=== PATIENT | male | born 1980 | race Caucasian/White ===

== ENCOUNTER 2017-03-28 16:55 | Emergency (ER) | payer BC, OTHER ==
[2017-03-28 17:01] VITALS: RESP 16; O2SAT 95
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
[2017-03-28] MEDS ORDERED: LET GEL TOPICAL 1 EA SYR TP ONE (17:59)
[2017-03-28 18:56] VITALS: BP 170/85; PULSE 78; TEMP 98.4
== END 2017-03-28 18:54 | disposition home or self-care (01) ==
DX: S40.812A Abrasion of left upper arm, initial encounter (principal); S80.812A Abrasion, left lower leg, initial encounter; J45.909 Unspecified asthma, uncomplicated; V18.2XXA Unspecified pedal cyclist injured in noncollision transport accident in nontraffic accident, initial encounter

== ENCOUNTER → 2017-07-26 | Day surgery (SDC) | payer OTHER ==
[~2017-07-26] MED LIST: ADENOSINE 6 MG/2 ML VIAL ONE; ALBUMIN 5% 250 ML BOTTLE IV ONE; AMIODARONE HCL 150 MG/3 ML VIAL ONE; ASPIRIN 81 MG CHEWABLE TAB ONE; ASPIRIN EC 325 MG TAB PO ONE; ASPIRIN RECTAL 300 MG SUPP PR ONE; CALCIUM CHLORIDE 1 GM/10 ML INJ ONE; CHLORHEXIDINE GLUC HIBICLENS 118 ML BTL TP SCH; CITRATE DEXTROSE SOLN 500 ML BAG MISC ONE; CITRATE DEXTROSE SOLN 500 ML BAG ONE; DOPamine/DEXTROSE/250 ML BAG IV ONE; EPINEPHrine 8 MG in NS 250 ML IV SCH; FUROSEMIDE 20 MG/2 ML VIAL IVP ONE; FUROSEMIDE 20 MG/2 ML VIAL ONE; HEPARIN 10,000 UNIT/10 ML MDV (1,000 UNIT/ML) ONE; INSULIN REGULAR HUMAN 100 UNIT in NS 100 ML IV ONE; IOPAMIDOL (ISOVUE 370) 100 ML BTL IV ONE; KETAMINE 200 MG/20 ML VIAL IVP ONE; LIDOCAINE 1% 5 ML SDV ID PRN; LIDOCAINE 2% 100 MG/5 ML SYR ONE; MAGNESIUM SULFATE 1 GM/2 ML VIAL ONE; MANNITOL 25% 12.5 GM/50 ML VIAL IVP ONE; MIDAZOLAM 2 MG/2 ML VIAL IVP ONE; MILRINONE/DEXTROSE/100 ML BAG IV ONE; MINERAL OIL 10 ML VIAL ONE; MUPIROCIN 2% 1 APP/GM OINT *BID NS SCH; NA BICARBONATE 50 MEQ/50 ML VIAL ONE; NITROGLYCERIN 50 MG/10 ML SDV IV ONE; NOREPINEPHRINE BITARTRATE 16 MG in NS 250 ML IV ONE; NS 1,000 ML IV ONE; PHENYLEPHRINE HCL 50 MG in NS 250 ML IV ONE; PHENYLEPHRINE HCL 50 MG in NS 250 ML IV SCH; PROTAMINE SULFATE 50 MG/5 ML VIAL IVP ONE; ROCURONIUM 100 MG/10 ML VIAL IVP ONE; ROCURONIUM 100 MG/10 ML VIAL ONE; SODIUM BICARBONATE 20 MEQ, LIDOCAINE 1% 10 ML in NORMOSOL-R 1,000 ML MISC ONE; TRANEXAMIC ACID 1,000 MG in NS (SYRINGE) 50 ML IV ONE; VASOPRESSIN 20 UNIT/ML VIAL ONE; VERAPAMIL 5 MG, NITROGLYCERIN 2.5 MG, HEPARIN 500 UNIT, SODIUM BICARBONATE 0.2 MEQ in L... MISC ONE; ceFAZolin 1 GM VIAL ONE; ceFAZolin 2 GM/SWFI 2 GM/20 ML SYR IVP ONE; ceFAZolin 3 GM in D5W 100 ML IV ONE; fentaNYL 100 MCG/2 ML INJ IVP ONE; fentaNYL 250 MCG/5 ML INJ ONE; methylPREDNISolone SOD SUCC 1 GM/8 ML VIAL ONE; niCARdipine/NACL/200 ML BAG IV ONE
[2017-07-26 22:30] VITALS: TEMP 98.1
--- NOTE | 2017-07-26 22:31 | CPEKG ---
Heart Rate: 68 RR Interval: 882 P-R Interval: 160 QRSD Interval: 90 QT Interval: 412 QTC Interval: 439 P [place]: 68 QRS [place]: 93 T Wave [place]: 247 EKG Severity - ABNORMAL ECG - EKG Impression: SINUS RHYTHM EKG Impression: BORDERLINE RIGHT AXIS DEVIATION EKG Impression: REPOL ABNRM SUGGESTS ISCHEMIA, DIFFUSE LEADS Electronically Signed By: Dajuan Lott 27-Jul-2017 09:29:07
--- NOTE | 2017-07-26 22:40 | CPEKG ---
Heart Rate: 76 RR Interval: 789 P-R Interval: 176 QRSD Interval: 90 QT Interval: 416 QTC Interval: 468 P [place]: 56 QRS [place]: 96 EKG Severity - ABNORMAL ECG - EKG Impression: SINUS RHYTHM EKG Impression: BORDERLINE RIGHT AXIS DEVIATION EKG Impression: REPOL ABNRM SUGGESTS ISCHEMIA, DIFFUSE LEADS Electronically Signed By: Dajuan Lott 27-Jul-2017 09:29:02
--- NOTE | 2017-07-26 22:45 | EDPHY ---
H & P Stated Complaint: cp Time Seen by Provider: 07/26/17 22:30 HPI/ROS: HPI The patient presents with chest pain which began about 30 min ago. He was downstairs in the basement, seated, when he walked up stairs and told his that he felt as if he was having a heart attack. He has midsternal chest pain which is severe and getting progressively worse. This is associated with some right-sided vision changes. His says that he has a history of migraines that often are ocular that can present with aphasia and she is worried that he may be having 1 now. He does not have hypertension, not a smoker, no prior history of chest pain. He does not have any family history of ACS. REVIEW OF SYSTEMS Constitutional: No fever, no chills. Eyes: No discharge. ENT: No sore throat. Cardiovascular: Positive for chest pain, no palpitations. Respiratory: No cough, no shortness of breath. Gastrointestinal: No abdominal pain, no vomiting. Genitourinary: No hematuria. Musculoskeletal: No back pain. Skin: No rashes. Neurological: No headache. PMHx: Some sort of valvular heart disease, not requiring any operation, history of migraine headaches Soc Hx: Lives at home with his , no smoking PHYSICAL General Appearance: Alert, obviously uncomfortable and crying out in pain Eyes: Pupils equal and round no pallor or injection ENT, Mouth: Mucous membranes moist Respiratory: He is tachypneic, lungs are clear Cardiovascular: Regular rate and rhythm Gastrointestinal: Abdomen is soft and non-tender, no masses, bowel sounds normal Neurological: A&O, moves all extremities Skin: Warm and dry, no rashes Musculoskeletal: Neck is supple non tender Extremities: symmetrical, full range of motion Psychiatric: Patient is oriented X 3, there is no agitation Source: Patient Exam Limitations: No limitations - Personal History Current Tetanus Diphtheria and Acellular Pertussis (TDAP): Unsure - Medical/Surgical History Hx Asthma: Yes Other PMH: migraines, mass syndrome - Social History Smoking Status: Never smoked Constitutional: Initial Vital Signs Temperature (C) 36.7 C 07/26/17 22:28 Heart Rate 72 07/26/17 22:28 Respiratory Rate 22 H 07/26/17 22:28 Blood Pressure 114/53 L 07/26/17 22:28 O2 Sat (%) 98 07/26/17 22:28 O2 Delivery Mode Ventilator O2 (L/minute) 15 Allergies/Adverse Reactions: theophylline Allergy (Mild, Verified 03/28/17 16:58) nausea Home Medications: Medication Instructions Recorded NK [No Known Home Meds] 03/28/17 Medical Decision Making - Diagnostics EKG Interpretation: EKG: Complete interpretation has been separately recorded in the [facility] archive. Summary impression: ST segment elevation in AVR with 3 per super cold depressions Imaging Results: Imaging Impressions Chest X-Ray 07/26/17 22:45 Impression: Interstitial prominence and patchy airspace consolidation that with the cardiomegaly could represent congestive heart failure. Component of pneumonia or pneumonitis cannot be excluded. Chest/Thorax CTA 07/26/17 23:08 Impression: 1. Aneurysmal dilatation the ascending thoracic aorta measuring 7 cm just above the aortic annulus. Evidence of dissection in the thoracic aorta beginning at the aortic annulus extending to the aortic arch with involvement of the great vessels and then extending caudally in the thoracic aorta to the level of the celiac artery with incomplete visualization of its caudal extent as above. 2. Pulmonary vascular congestion with interstitial prominence and patchy airspace consolidation bilateral suggesting pulmonary edema. Results called and discussed with Dr. Nancy Nguyen at 07/26/2017 2345 hours. Imaging: Discussed imaging studies w/ calliope player Radiologist, I viewed and interpreted images myself Procedures: INTUBATION Procedure: Rapid sequence intubation. Indication for the procedure was airway protection and respiratory failure. The patient was preoxygenated with 100% oxygen by nasal cannula and face mask. The patient was given the following IV medications: Ketamine and rocuronium. The patient was orally endotracheally intubated using the glide scope with a 8.0 ETT. Tracheal intubation was confirmed with misting on the tube; breath sounds were auscultated equally bilaterally; appropriate color change with [place] [employer] CO2 detector. The procedure was performed by myself. Differential Diagnosis: 36-year-old male, brought in by his , past medical history of migraine headaches and some sort of valvular heart disease presents with chest pain which has been present for the last 30 min. On exam, he has normal vital signs. He seems to be very uncomfortable and is unable to articulate his pain. 10:44 p.m.- I spoke with Dr. Ching Of Cardiology he will come to evaluate the patient. Patient is still having ongoing pain, thus we will medicate with morphine. 11:13 p.m.- The patient has had stable vital signs though has ongoing chest pain and is somewhat agitated. He is receiving a 2nd dose of morphine. Chest x-ray returned showing concern for cardiomegaly which would be unusual, and raises suspicion for aortic dissection. That brim buster will go with the patient to CT scan to evaluate for aortic dissection. 11:30 p.m.- CT scan reveals large aortic dissection. Patient has become more tachycardic, slightly hypotensive and is quite agitated. He had to receive fentanyl and Versed to undergo CT scan. He was moved immediately back to his room in the emergency department and then was emergently intubated. There was frothy sputum during intubation. Blood pressures have been stable, patient's oxygen saturations have improved. Dr. Hinojosa CT surgery is in the department seeing the patient. He will go directly to the operating room. 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 Critical Care Time: CRITICAL CARE Critical care time spent by me, Dr. Nguyen, exclusively with this patient was 60 minutes, exclusive of PA time and exclusive of procedures. The organ system at risk was cardiac, neuro and I gave IV fluids, intubated the patient, patient transported directly to the operating room to prevent worsening of the patients condition. - Data Points Laboratory Results: Laboratory Results 07/26/17 22:37 07/26/17 22:37 07/26/17 07/26/17 07/26/17 23:37 22:37 22:37 WBC 13.30 10^3/uL H 10^3/uL (3.80-9.50) RBC 5.51 10^6/uL 10^6/uL (4.40-6.38) Hgb 15.7 g/dL g/dL (13.7-17.5) Hct 46.2 % % (40.0-51.0) MCV 83.8 fL fL (81.5-99.8) MCH 28.5 pg pg (27.9-34.1) MCHC 34.0 g/dL g/dL (32.4-36.7) RDW 13.8 % % (11.5-15.2) Plt Count 240 10^3/uL 10^3/uL (150-400) MPV 9.1 fL fL (8.7-11.7) Neut % (Auto) 45.8 % % (39.3-74.2) Lymph % (Auto) 42.6 % % (15.0-45.0) Gem % (Auto) 8.7 % % (4.5-13.0) Eos % (Auto) 2.1 % % (0.6-7.6) Baso % (Auto) 0.5 % % (0.3-1.7) Nucleat RBC Rel Count 0.0 % % (0.0-0.2) Absolute Neuts (auto) 6.09 10^3/uL 10^3/uL (1.70-6.50) Absolute Lymphs (auto) 5.66 10^3/uL H 10^3/uL (1.00-3.00) Absolute Monos (auto) 1.16 10^3/uL H 10^3/uL (0.30-0.80) Absolute Eos (auto) 0.28 10^3/uL 10^3/uL (0.03-0.40) Absolute Basos (auto) 0.07 10^3/uL 10^3/uL (0.02-0.10) Absolute Nucleated RBC 0.00 10^3/uL 10^3/uL (0-0.01) Immature Gran % 0.3 % % (0.0-1.1) Immature Gran # 0.04 10^3/uL 10^3/uL (0.00-0.10) Sodium 140 mEq/L mEq/L (135-145) Potassium 4.5 mEq/L mEq/L (3.5-5.2) Chloride 105 mEq/L mEq/L (97-110) Carbon Dioxide 21 mEq/l L mEq/l (22-31) Anion Gap 14 mEq/L mEq/L (8-16) BUN 17 mg/dL mg/dL (7-23) Creatinine 1.2 mg/dL mg/dL (0.7-1.3) Estimated GFR > 60 Glucose 113 mg/dL H mg/dL (70-100) Calcium 9.6 mg/dL mg/dL (8.5-10.4) Troponin I < 0.012 ng/mL ng/mL (0.000-0.034) Patient ABO/Rh O NEGATIVE Antibody Screen NEGATIVE Crossmatch IS Only See Detail Bld Prod Verbal Order YES Medications Given: Discontinued Medications Adenosine (Adenosine) Confirm Administered Dose 12 mg .ROUTE .STK-MED ONE Stop: 07/27/17 00:28 Last Admin: 07/27/17 02:08 Dose: Not Given Albumin Human (Alburx 5) Confirm Administered Dose 1,000 ml IV .STK-MED ONE Stop: 07/27/17 00:29 Last Admin: 07/27/17 02:08 Dose: Not Given Amiodarone HCl (Amiodarone Hcl) Confirm Administered Dose 300 mg .ROUTE .STK- MED ONE Stop: 07/27/17 00:28 Last Admin: 07/27/17 02:08 Dose: Not Given Amiodarone HCl (Amiodarone Hcl) Confirm Administered Dose 150 mg .ROUTE .STK- MED ONE Stop: 07/27/17 00:30 Last Admin: 07/27/17 02:08 Dose: Not Given Aspirin (Aspirin Rectal) 300 mg ND EDNOW ONE Stop: 07/26/17 22:48 Last Admin: 07/26/17 22:49 Dose: 300 mg Aspirin Buffered (Aspirin Ec) 325 mg PO EDNOW ONE Stop: 07/26/17 22:44 Last Admin: 07/26/17 22:51 Dose: Not Given Calcium Chloride (Calcium Chloride) Confirm Administered Dose 3 gm .ROUTE .STK- MED ONE Stop: 07/27/17 00:26 Last Admin: 07/27/17 02:09 Dose: Not Given Calcium Chloride (Calcium Chloride) Confirm Administered Dose 3 gm .ROUTE .STK- MED ONE Stop: 07/27/17 00:29 Last Admin: 07/27/17 02:09 Dose: Not Given Cefazolin Sodium (Ancef) Confirm Administered Dose 2 gm .ROUTE .STK-MED ONE Stop: 07/27/17 00:28 Last Admin: 07/27/17 02:10 Dose: Not Given Cefazolin Sodium (Ancef) Confirm Administered Dose 1 gm .ROUTE .STK-MED ONE Stop: 07/27/17 02:09 Last Admin: 07/27/17 02:32 Dose: Not Given Cefazolin Sodium (Ancef) Confirm Administered Dose 1 gm .ROUTE .STK-MED ONE Stop: 07/27/17 02:09 Last Admin: 07/27/17 02:32 Dose: Not Given Cefazolin Sodium (Ancef) Confirm Administered Dose 1 gm .ROUTE .STK-MED ONE Stop: 07/27/17 02:09 Last Admin: 07/27/17 02:32 Dose: Not Given Dopamine HCl/Dextrose (Dopamine 1600 Mcg/Ml (Premix)) Confirm Administered Dose 400 mg IV .STK-MED ONE Stop: 07/27/17 00:28 Last Admin: 07/27/17 02:18 Dose: Not Given Fentanyl (Sublimaze) 50 mcg IVP EDNOW ONE Stop: 07/26/17 23:21 Last Admin: 07/26/17 23:58 Dose: 50 mcg Furosemide (Lasix Injection) 20 mg IVP EDNOW ONE Stop: 07/26/17 23:11 Last Admin: 07/26/17 23:09 Dose: 20 mg Heparin Sodium (Porcine) (Heparin Injection) Confirm Administered Dose 6,000 unit .ROUTE .STK-MED ONE Stop: 07/27/17 00:23 Last Admin: 07/27/17 02:18 Dose: Not Given Heparin Sodium (Porcine) (Heparin Injection) Confirm Administered Dose 10,000 unit .ROUTE .STK-MED ONE Stop: 07/27/17 00:27 Last Admin: 07/27/17 02:18 Dose: Not Given Heparin Sodium (Porcine) (Heparin Injection) Confirm Administered Dose 4,000 unit .ROUTE .STK-MED ONE Stop: 07/27/17 00:29 Last Admin: 07/27/17 02:18 Dose: Not Given Sodium Chloride (Ns) 1,000 mls @ 0 mls/hr IV ONCE ONE PRN Reason: Wide Open Stop: 07/26/17 22:41 Last Admin: 07/26/17 22:41 Dose: 1,000 mls Cefazolin Sodium (Cefazolin Syringe) 2 gm in 20 mls @ 200 mls/hr IVP ONCALL ONE Stop: 07/26/17 23:35 Last Admin: 07/27/17 02:12 Dose: 20 mls Tranexamic Acid 1,000 mg/ (Sodium Chloride) 50 mls @ 0 mls/hr IV ONCALL ONE PRN Reason: As Directed Stop: 07/26/17 23:31 Last Admin: 07/27/17 01:40 Dose: 50 mls Tranexamic Acid 1,000 mg/ (Sodium Chloride) 50 mls @ 0 mls/hr IV ONCALL ONE PRN Reason: As Directed Stop: 07/26/17 23:31 Last Admin: 07/27/17 01:40 Dose: 50 mls Insulin Human Regular 100 unit (/ Sodium Chloride) 101 mls @ 0 mls/hr IV ONCALL ONE PRN Reason: As Directed Stop: 07/26/17 23:31 Last Admin: 07/27/17 02:18 Dose: Not Given Cefazolin Sodium 3 gm/ (Dextrose) 100 mls @ 200 mls/hr IV ONCALL ONE Stop: 07/26/17 23:59 Last Admin: 07/26/17 23:58 Dose: 100 mls Verapamil HCl 5 mg/Nitroglycerin 2.5 mg/ Heparin Sodium (Porcine) 500 unit/ Sodium Bicarbonate 0.2 meq/Lactated Ringer's 303.2 mls @ 0 mls/hr MISC ONCALL ONE PRN Reason: As Directed Stop: 07/27/17 04:31 Last Admin: 07/27/17 04:34 Dose: 303.2 mls Ketamine HCl (Ketamine) 120 mg IVP EDNOW ONE Stop: 07/26/17 23:26 Last Admin: 07/27/17 00:00 Dose: 120 mg Lidocaine HCl (Lidocaine Hcl 2%) Confirm Administered Dose 200 mg .ROUTE .STK- MED ONE Stop: 07/27/17 00:29 Last Admin: 07/27/17 02:19 Dose: Not Given Magnesium Sulfate (Magnesium Sulfate) Confirm Administered Dose 4 gm .ROUTE .STK -MED ONE Stop: 07/27/17 00:30 Last Admin: 07/27/17 02:19 Dose: Not Given Mannitol (Mannitol 25%) 25 gm IVP ONCALL ONE Stop: 07/26/17 23:31 Last Admin: 07/27/17 02:19 Dose: Not Given Methylprednisolone Sodium Succinate (Solu-Medrol) Confirm Administered Dose 1 gm .ROUTE .STK-MED ONE Stop: 07/27/17 00:30 Last Admin: 07/27/17 02:19 Dose: Not Given Midazolam HCl (Versed) 1 mg IVP EDNOW ONE Stop: 07/26/17 23:21 Last Admin: 07/26/17 23:58 Dose: Not Given Midazolam HCl (Versed) 2 mg IVP ONCE ONE Stop: 07/26/17 23:57 Last Admin: 07/26/17 23:58 Dose: 2 mg Milrinone Lactate/Dextrose (Primacor 200 Mcg/Ml (Premix)) Confirm Administered Dose 20 mg IV .STK-MED ONE Stop: 07/27/17 00:26 Last Admin: 07/27/17 02:19 Dose: Not Given Mineral Oil (Muri-Lube Mineral Oil) Confirm Administered Dose 10 ml .ROUTE .STK- MED ONE Stop: 07/27/17 03:27 Last Admin: 07/27/17 04:32 Dose: 10 ml Morphine Sulfate (Morphine) 4 mg IVP EDNOW ONE Stop: 07/26/17 22:40 Last Admin: 07/26/17 22:41 Dose: 4 mg Morphine Sulfate (Morphine) 4 mg IVP EDNOW ONE Stop: 07/26/17 23:06 Last Admin: 07/26/17 23:05 Dose: 4 mg Nicardipine/Sodium Chloride (Cardene 0.1 Mg/Ml (Premix)) Confirm Administered Dose 20 mg IV .STK-MED ONE Stop: 07/27/17 00:28 Last Admin: 07/27/17 02:19 Dose: Not Given Protamine Sulfate (Protamine Sulfate) Confirm Administered Dose 400 mg IVP .STK- MED ONE Stop: 07/27/17 00:26 Last Admin: 07/27/17 02:20 Dose: Not Given Rocuronium [place] (Zemuron) 100 mg IVP EDNOW ONE Stop: 07/26/17 23:26 Last Admin: 07/27/17 00:01 Dose: 100 mg Sodium Bicarbonate (Sodium Bicarbonate) Confirm Administered Dose 350 meq .ROUTE .STK-MED ONE Stop: 07/27/17 00:27 Last Admin: 07/27/17 02:20 Dose: Not Given Sodium Bicarbonate (Sodium Bicarbonate) Confirm Administered Dose 100 meq .ROUTE .STK-MED ONE Stop: 07/27/17 02:16 Last Admin: 07/27/17 02:31 Dose: Not Given Sodium Citrate (Acd-A) 500 ml MISC ONCALL ONE Stop: 07/26/17 23:31 Last Admin: 07/27/17 02:11 Dose: Not Given Sodium Citrate (Acd-A) Confirm Administered Dose 500 ml .ROUTE .STK-MED ONE Stop: 07/27/17 00:22 Last Admin: 07/27/17 02:14 Dose: Not Given Sodium Citrate (Acd-A) Confirm Administered Dose 500 ml .ROUTE .STK-MED ONE Stop: 07/27/17 00:29 Last Admin: 07/27/17 02:17 Dose: Not Given Departure - Departure Disposition: To OP Cath/Surgery Clinical Impression: Acute coronary syndrome Congestive heart failure Qualifiers: Heart failure type: unspecified Heart failure chronicity: acute Qualified Code( s): I50.9 - Heart failure, unspecified Aortic dissection Qualifiers: Aortic location: unspecified Qualified Code(s): I71.00 - Dissection of unspecified site of aorta Condition: Critical
[2017-07-26 22:52] LABS: PLATELET COUNT 240 10^3/uL (150-400)
[2017-07-27 00:03] VITALS: BP 116/59; O2SAT 88
--- NOTE | 2017-07-27 00:27 | PDCARCONS ---
Cardiology Consult Reason for Consult: Cardiac alert Chief Complaint: Help me Requesting Physician: Patrick History of Present Illness: 36-year-old male no prior cardiovascular history. I was called in by Dr. Nguyen for cardiac alert. Patient presented with acute onset at 10:00 p.m. of terrible chest pain and loss of vision in 1 eye. It was associated with shortness of breath. He went to his saying that if this was a heart attack he thought he was having when he was brought to the emergency department initial EKG showed ST elevation in 1 and aVL with reciprocal ST depression in all other leads and I was called. On my arrival the patient was in acute extremis. He was sitting bolt upright diaphoretic sweaty in acute pulmonary edema with pink frothy fluid. His only complaint was that he needed help. On my arrival I was able to contact his father who question whether not he had Marfan's disease as a child. He did have a history of a repaired pectus excavatum. With that information he was taken emergently to the Cardiac CT scanner by myself in the ER nursing staff. He was sedated with 2 mg of Versed and 75 mcg of fentanyl. Were able to obtain a CT scan confirming ascending aortic dissection. On my arrival to the ER after for clinical examination showed differential pulses I did contact Dr. Berrios to activate the surgery team. After returning from CT scanner patient's respirations were depressed and oxygen saturations at fallen. Dr. Nguyen was asked to intubate the patient which she performed without complication. He was then taken emergently to the operating room for surgical repair. History Information - Allergies/Home Medication List Allergies/Adverse Reactions: theophylline Allergy (Mild, Verified 03/28/17 16:58) nausea Home Medications: NK [No Known Home Meds] 03/28/17 [Last Taken Unknown] I have personally reviewed and updated: family history, medical history, social history, surgical history Past Medical History: No history of alcohol. No history of tobacco. Surgical history significant fracture of the face. And pectus excavatum repair as a child. Patient had a questionable diagnosis of mast syndrome made during genetic counseling prior to IVF with his . No genetic confirmation of Marfan's disease was performed. There is a family history of tall stature. No history of aortopathy. - Past Medical History migraines - Social History Smoking Status: Never smoked Alcohol Use: None Physical Exam Physical Exam: Temp Pulse Resp BP Pulse Ox 36.7 C 108 H 20 116/59 L 88 L 07/26/17 22:28 07/26/17 23:37 07/26/17 23:37 07/26/17 23:37 07/26/17 23:37 Constitutional: other (Acute respiratory distress sitting bolt upright diaphoretic sweaty) Ears, Nose, Mouth, Throat: dry mucous membranes Cardiovascular: other (3/6 blowing diastolic murmur. Asymmetric pulses with decreased pulses on the right side as compared to the left.) Peripheral Pulses: 1+: femoral (R), dorsalis-pedis (R), 4+: femoral (L), dorsalis-pedis (L) Respiratory: respiratory distress, other (Full field rales) Gastrointestinal: soft, non-tender abdomen Skin: mottled Neurologic: No facial droop Psychiatric: anxious Lymph, Heme, Immunologic: no cervical LAD, no supraclavicular LAD Lab and Imaging 07/26/17 22:37 07/26/17 22:37 WBC 13.30 10^3/uL (3.80-9.50) H 07/26/17 22:37 RBC 5.51 10^6/uL (4.40-6.38) 07/26/17 22:37 Hgb 15.7 g/dL (13.7-17.5) 07/26/17 22:37 Hct 46.2 % (40.0-51.0) 07/26/17 22:37 MCV 83.8 fL (81.5-99.8) 07/26/17 22:37 MCH 28.5 pg (27.9-34.1) 07/26/17 22:37 MCHC 34.0 g/dL (32.4-36.7) 07/26/17 22:37 RDW 13.8 % (11.5-15.2) 07/26/17 22:37 Plt Count 240 10^3/uL (150-400) 07/26/17 22:37 MPV 9.1 fL (8.7-11.7) 07/26/17 22:37 Neut % (Auto) 45.8 % (39.3-74.2) 07/26/17 22:37 Lymph % (Auto) 42.6 % (15.0-45.0) 07/26/17 22:37 Pickens % (Auto) 8.7 % (4.5-13.0) 07/26/17 22:37 Eos % (Auto) 2.1 % (0.6-7.6) 07/26/17 22:37 Baso % (Auto) 0.5 % (0.3-1.7) 07/26/17:37 Nucleat RBC Rel Count 0.0 % (0.0-0.2) 07/26/17 22:37 Absolute Neuts (auto) 6.09 10^3/uL (1.70-6.50) 07/26/17: Absolute Lymphs (auto) 5.66 10^3/uL (1.00-3.00) H 07/26/17:37 Absolute Monos (auto) 1.16 10^3/uL (0.30-0.80) H 07/26/17:37 Absolute Eos (auto) 0.28 10^3/uL (0.03-0.40) 07/26/17 22:37 Absolute Basos (auto) 0.07 10^3/uL (0.02-0.10) 07/26/17:37 Absolute Nucleated RBC 0.00 10^3/uL (0-0.01) 07/26/17 22: Immature Gran % 0.3 % (0.0-1.1) 07/26/17: Immature Gran # 0.04 10^3/uL (0.00-0.10) 07/26/17 22:37 Sodium 140 mEq/L (135-145) 07/26/17 22:37 Potassium 4.5 mEq/L (3.5-5.2) 07/26/17:37 Chloride 105 mEq/L (97-110) 07/26/17: Carbon Dioxide 21 mEq/l (22-31) L 07/26/17 22:37 Anion Gap 14 mEq/L (8-16) 07/26/17 22:37 BUN 17 mg/dL (7-23) 07/26/17 22:37 Creatinine 1.2 mg/dL (0.7-1.3) 07/26/17: Estimated GFR > 60 07/26/17: Glucose 113 mg/dL (70-100) H 07/26/17: Calcium 9.6 mg/dL (8.5-10.4) 07/26/17: Troponin I < 0.012 ng/mL (0.000-0.034) 07/26/17: Patient ABO/Rh O NEGATIVE 07/26/17: Antibody Screen NEGATIVE 07/26/17: Crossmatch IS Only See Detail 07/26/17: Bld Prod Verbal Order YES 07/26/17: Echocardiogram: CT scan revealed acute aortic dissection involving the ascending aorta. There was no pericardial effusion. ANGELIC at the time of initiation of surgery shows a prolapse of the aortic root through the aortic valve with wide-open aortic insufficiency and mild mitral regurgitation. Left ventricular function is intact. Right ventricular function is intact. There is no pericardial effusion A/P Assessment: Acute type 1 aortic dissection likely in the setting of Marfan's disease based on history of pectus excavatum and patient's phenotype. Plan: Surgical repair. Discussed with patient's .
[2017-07-27 04:25] VITALS: PULSE 109; RESP 21
--- NOTE | 2017-07-27 08:00 | PDANEPAE ---
ANE History of Present Illness Pt brought emergently to OR 8 intubated, in extremis with suspected aortic dissection, limited PMH history from nursing secondary to emergency situation ANE Past Medical History - Pulmonary History Hx Oxygen in Use at Home: No ANE Review of Systems Review of Systems: ANE Patient History - Allergies Allergies/Adverse Reactions: theophylline Allergy (Mild, Verified 03/28/17 16:58) nausea - Home Medications Home Medications: NK [No Known Home Meds] 03/28/17 [Last Taken Unknown] - Smoking Hx Smoking Status: Never smoked - Alcohol Use Alcohol Use: None ANE Labs/Vital Signs - Labs Result Diagrams: 07/26/17 22:37 07/26/17 22:37 - Vital Signs Blood Pressure: 116/59 Heart Rate: 109 Respiratory Rate: 21 O2 Sat (%): 88 Weight: 136.078 kg ANE Physical Exam - Airway Mouth exam: ETT in situ - Pulmonary Pulmonary: reduced air movement, other (frothy pink sputum in ETT ) - Cardiovascular Cardiovascular: tachycardia - ASA Status ASA Status: V, E ANE Anesthesia Plan Anesthesia Plan: general endotracheal anesthesia Lines/Monitors: arterial line, central line, ANGELIC
--- NOTE | 2017-07-27 08:01 | POSTANESTH ---
Post Anesthetic Evaluation Cardiovascular Status: Other, See Comment Respiratory Status: Other, See Comment Level of Consciousness/Mental Status: Other, See Comment Pain Control: Adequate, Prn Tx Ordered Nausea/Vomiting Control: Adequate, Prn Tx Ordered (patient in the operating room, s/p aortic dissection) Complications Possibly Related to Anesthesia: Other, See Comments
--- NOTE | 2017-08-06 14:35 | GOP ---
[f rep st] OPERATIVE REPORT DATE OF OPERATION: 07/26/2017 SURGEON: Max Berrios DO NIB ADJUSTER: Keith Vargas PA-C ANESTHESIOLOGIST: Jose Alejandro Krishnamurthy MD. PREOPERATIVE DIAGNOSIS: Acute type A dissection with acute onset of aortic insufficiency, severe pul monary edema and cardiogenic shock. POSTOPERATIVE DIAGNOSIS: Acute type A dissection with acute onset of aortic insufficiency, severe pu lmonary edema and cardiogenic shock. PROCEDURE PERFORMED: 1. Aortic root replacement with #29 Hemashield graft. 2. Replacement of ascending aorta up to the innominate artery. 3. Right axillary artery cannulation with a 10 mm Hemashield graft end-to-side. 4. Coronary artery bypass grafting x2 with a vein graft to the left anterior descending artery and a vein graft to the circumflex. FINDINGS: DESCRIPTION OF PROCEDURE: Patient presented to the operating room with acute type A dissection, intu bated with O2 saturation in the 70s due to acute pulmonary edema. He was hemodynamically unstable, w as brought to the operating room urgently from the ER after consent was given by the . He was em ergently prepped and draped. I placed a left subclavian vein while Anesthesia placed a right radial A line. He had had a previous pectus repair and therefore had significant chest wall changes. Emergent sternotomy was performed. There was obvious a great amount of serosanguineous fluid in the pericardium. It was not opened. We then proceeded with exposing the right axillary artery in an obe se, large gentleman with some difficulty due to his size. The artery was good quality, 1 cm vessel. The patient was heparinized and a Hemashield graft was sewn end-to-side in order to place an arteria l conduit for the cardiopulmonary bypass machine. This was secured after heparinization. We then opened the pericardium. The patient had at least an 8 or 9 cm ascending aorta which was tao edly discolored, consistent with dissection. There was no free rupture. The heart had been displace d toward the diaphragm and into the left chest, consistent with typical chronic aneurysm findings. V entricular function appeared to be preserved on transesophageal echo. He had wide-open aortic insuff iciency and, again, florid pulmonary edema. We then began cardiopulmonary bypass after the right can nula was placed. We began cooling to 18 degrees centigrade, thinking we would have to do circulation arrest. However, the aneurysm stopped at about the mid ascending and for 2 cm before the innominate artery, was relatively normal in caliber. I then felt I could avoid circulation arrest, if I was ab le to place the cross-clamp up high enough. We then transected about 2 cm proximal to the innominate artery takeoff, and excised the entire ascen ding aorta. There was obvious complete dehiscence of the circumferential root, intima and media whic h had been prolapsing down into the ventricle on echo. This had avulsed the right coronary artery of f, with it only being adherent to the adventitia with the media and intima completely disrupted. The left appeared to be intact, although the adventitia was for 2 cm down under the pulmonary artery. However, it appeared that the intima and media were intact. There was no obvious bleeding c oming from that site. My plan was to try to preserve his left main in this young gentleman. I therefore excised the lopez ry buttons and brought the adventitia of the left main back up to the rim of the aortic button, and g ently tacked that back in place with several 5-0 Prolene sutures. I felt that I could felt-reinforce that and hopefully preserve his left main. He did present with significant ST-segment changes acros s all precordial leads consistent with acute ischemia in both distributions. The right coronary was sheared off, but it was intact from the adventitia distally. I did not feel there was a dissection o f the right coronary artery. The left I felt was still patent, and I was able to gently probe under the pulmonary artery. Therefore, I wished to preserve it. We then excised the remainder of the trileaflet valve. The anulus was markedly dilated, consistent w ith a large root aneurysm. I then used interrupted 2-0 Tycron sutures, seating a 29 mm freestyle gra ft rotated 120 degrees in standard fashion. The pig's right coronary button was oversewn with adia duque since that became the noncoronary sinus. I then secured anastomosis to the LV outflow t ract with interrupted 2-0 Tycron with felt reinforcement at the closure of the anulus, and BioGlue ap plied externally. We used Cor-Knots in order to facilitate a rapid procedure. I then fashioned an o stium in the roots for the left coronary, which was reinforced with felt on the outside and tacked, a nd appeared to probe patent with good retrograde flow noted all the time, giving retrograde cardiople santino. I felt secure that this would be a better long-term solution than oversewing the left main and bypassing it. We then were able to reanastomose the right coronary artery, which was a large vessel, end-to-side in to the newly fashioned right coronary sinus of the porcine root after transecting the left coronary b utton. I did this with interrupted 7-0 Prolene on the back wall and a continuous running 6-0 Prolene on the anterior wall. It appeared with good apposition and widely patent, and was easily probed dis tally. Again, I felt there was no dissection there. We then completed replacing the ascending aorta with a 24 mm Hemashield graft, felt reinforcing the i nside and outside of the distal aorta, and then sewing that directly to the graft for hemostasis. Th is was sewn to the proximal root, as well. We then removed the cross-clamp with suction on the ascen ding aortic vent and LV sump. The patient returned to spontaneous cardiac activity. However, he req uired V pacing. After the patient was de-aired, he was weaned from bypass easily. We initially were preparing to giv e protamine when he began experiencing significant bleeding from the posterior root, which appeared t o be disintegration of the left main coronary artery. I re-arrested the patient, re-transected the g raft from the root prosthesis in order to better expose the left main. It appeared that the adventit ia was bulging. I therefore reapproximated the adventitia, realizing I was probably partially compro mising the left main, but I basically used felt pledgeted sutures through the adventitia of the left main down to where I felt the dissection ended, hoping to maintain some flow there, and then 2 veins were taken from the leg while I was doing this by WILFREDO Saini, which we then grafted to a moderat e-sized LAD and a large circumflex. These were brought off the aortic graft. We then removed the cross-clamp again, at which point, spontaneous cardiac activity was noted. Howev er, multiple attempts to wean from bypass resulted in persistent ventricular fibrillation and he had a significant coagulopathy at that point. He would initially come off, however, he would then show e vidence of biventricular dysfunction and fibrillate, despite aggressive cardioplegia delivery through out both the cross-clamps. I felt that his left main was probably dissected out into the septum and despite vein graft flow distally, that it was result of an acute ischemic event which would not be re versible. Because of his coagulopathy, I did not consider putting him on any sort of ventricular ass ist and he in the operating room. The chest was closed. The patient was returned to ICU for viewing. OUTCOME: The patient intraoperatively. /[id number]/MODL
--- NOTE | 2017-08-15 15:46 | GDS ---
[f rep st] DISCHARGE SUMMARY ADMIT DIAGNOSES: 1. Type A dissection. 2. Marfan disease. 3. 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 4. Obesity. 5. Status post previous pectus repair. DISCHARGE DIAGNOSES: 1. Type A dissection. 2. Marfan disease. 3. 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 4. Obesity. 5. Status post previous pectus repair. 6. Evidence of acute aortic insufficiency and as well. PROCEDURES PERFORMED: 1. Emergent replacement of aortic root and bypass of the left anterior descending and circumflex. 2. Right axillary artery grafting with a 10 mm Hemashield graft with a primary closure. SURGEON: Max Berrios DO. PLUGGER: Keith Vargas PA-C. ANESTHESIA: Jose Alejandro Krishnamurthy MD. HOSPITAL COURSE: Patient presented with acute type A dissection with a wide-open aortic insufficienc y on echo. He was in extremis, intubated and hypoxic when met in the ER by myself. We emergently to ok him to the operating room after consent was obtained from his . She was advised that he was a high risk procedure with 100% mortality without surgery. He was taken emergently to the operating room where a left arterial line was placed and Fo dodie catheter was placed. He was then emergently prepped and draped. He was hemodynamically unstable and hypoxic despite maximum ventilatory support. Emergent sternotomy was performed. We then expose d the right axillary artery which was difficult due to his obesity and large chest wall. A 10 mm Hemashield graft was sewn end-to-side after heparin was administered. A cannula was placed i nside it for return of arterial flow from the cardiopulmonary bypass machine. We then performed cameron cardiotomy. There was serosanguineous fluid in the pericardium. The heart was markedly depressed to parker the diaphragm and into the left chest. There was an approximately 8-10 cm ascending aorta which was markedly abnormal with gross adventitial hemorrhage noted. A right atrial cannula was placed. Cardiopulmonary bypass was begun. We then initially started cooling him for potential circulatory ar rest. An LV sump was placed. The patient had wide-open aortic insufficiency on echo with marked ST- segment changes across the precordium and essentially in every lead, consistent with likely left and right coronary artery ischemia. He underwent complex repair and despite grafting of the distal vessels and replacing his aortic root without using circ arrest, he was unable to be resuscitated and weaned from bypass. An LVAD was not placed because of his ongoing bleeding issues with severe coagulopathy and the fact that it appeared his coronaries had dissected down into the septum. He in the operating room. /[id number]/MODL
== END | disposition expired ==
LOC: FSGY 23:39 → UNDOADMIN 23:39 → F2N 07-27 07:53 → UNDODISIN 07-27 10:30
PROVIDERS: ATTEND Thoracic Surgery (Cardiothoracic Vascular Surgery)
PROC: 02RX0JZ Replacement of Thoracic Aorta, Ascending/Arch with Synthetic Substitute, Open Approach (ICD-10-PCS; principal; 2017-07-26 23:45)
PROC: 06BY0ZZ Excision of Lower Vein, Open Approach (ICD-10-PCS; principal; 2017-07-26 23:45)
PROC: 021109W Bypass Coronary Artery, Two Arteries from Aorta with Autologous Venous Tissue, Open Approach (ICD-10-PCS; principal; 2017-07-26 23:45)
PROC: 5A1221Z Performance of Cardiac Output, Continuous (ICD-10-PCS; principal; 2017-07-26 23:45)
PROC: 30233K1 Transfusion of Nonautologous Frozen Plasma into Peripheral Vein, Percutaneous Approach (ICD-10-PCS; 2017-07-26 23:45)
PROC: 30233N1 Transfusion of Nonautologous Red Blood Cells into Peripheral Vein, Percutaneous Approach (ICD-10-PCS; 2017-07-26 23:45)
PROC: 30233R1 Transfusion of Nonautologous Platelets into Peripheral Vein, Percutaneous Approach (ICD-10-PCS; 2017-07-26 23:45)
PROC: 0BH17EZ Insertion of Endotracheal Airway into Trachea, Via Natural or Artificial Opening (ICD-10-PCS; 2017-07-26 23:45)
DX: I71.01 Dissection of thoracic aorta (principal); R57.0 Cardiogenic shock; I49.01 Ventricular fibrillation; I08.0 Rheumatic disorders of both mitral and aortic valves; E66.9 Obesity, unspecified; J81.1 Chronic pulmonary edema
CPT/HCPCS: 96374; C1768; J0153; J0171; J0282; J0690; J1265; J1644; J1815; J1940; J2001; J2150; J2260; J2270; J2370; J2720; J2930; J3010; J3475; J7060; P9016; P9017; P9035; P9041; Q9967